=== PATIENT | male | born 2000 | race Caucasian/White ===

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

== ENCOUNTER 2022-03-26 19:28 | Emergency (ER) | payer SELFPAY ==
[~2022-03-26] VITALS: Ht 182.9 cm; Wt 89.4 kg
[2022-03-26 19:54] VITALS: BP 125/58
--- NOTE | 2022-03-26 20:00 | NUR ---
PT TO LOBBY VIA W/C
--- NOTE | 2022-03-26 20:15 | NUR ---
PT TAKEN TO RAD
--- NOTE | 2022-03-26 20:20 | NUR ---
PT BACK FROM RAD.
--- NOTE | 2022-03-26 20:53 | NUR ---
PT TO [facility]
--- NOTE | 2022-03-26 21:01 | NUR ---
ARMA[facility] SIN EXAMINING PT.
[2022-03-26] MEDS ORDERED: IBUPROFEN 800 MG TAB PO ONE (21:05)
[2022-03-26] MEDS ORDERED: IBUP-2213 PO (21:22)
[2022-03-26 21:43] VITALS: BP 125/58
== END 2022-03-26 21:43 | disposition home or self-care (01) ==
LOC: MED 19:28
DX: S93.402A Sprain of unspecified ligament of left ankle, initial encounter (principal); W18.30XA Fall on same level, unspecified, initial encounter; Y93.51 Activity, roller skating (inline) and skateboarding; Y92.89 Other specified places as the place of occurrence of the external cause; Y99.8 Other external cause status
CPT/HCPCS: 73610; 99283

== ENCOUNTER 2024-01-10 17:30 | Emergency (ER) | payer OTHER ==
[~2024-01-10] VITALS: Ht 185.4 cm; Wt 86.2 kg
[~2024-01-10 17:30] MED LIST: IBUP-2213 PO
[2024-01-10 17:55] VITALS: BP 115/64; PULSE 82; RESP 24; TEMP 98.5; O2SAT 100
[2024-01-10] MEDS ORDERED: IBUP-2213 PO (18:20)
[2024-01-10] MEDS ORDERED: ACET-8905 PO (18:20)
[2024-01-10] MEDS: KETOROLAC 60 MG/2 ML VIAL IM ONE (18:27)
[2024-01-10 18:39] VITALS: BP 123/54; PULSE 83; RESP 20; TEMP 36.94740; O2SAT 100
== END 2024-01-10 18:39 | disposition home or self-care (01) ==
LOC: MED 17:30
DX: M79.10 Myalgia, unspecified site (principal); F12.90 Cannabis use, unspecified, uncomplicated; Z79.899 Other long term (current) drug therapy; V49.88XA Car occupant (driver) (passenger) injured in other specified transport accidents, initial encounter; Y93.89 Activity, other specified; Y92.89 Other specified places as the place of occurrence of the external cause; Y99.8 Other external cause status
CPT/HCPCS: 96372; 99283; J1885

== ENCOUNTER 2024-02-06 18:47 | Emergency (ER) | payer OTHER ==
[~2024-02-06] VITALS: Ht 185.4 cm; Wt 84.0 kg
[~2024-02-06 18:47] MED LIST changes: +ACET-8905 PO
[2024-02-06 18:53] VITALS: BP 139/51; PULSE 82; RESP 18; TEMP 99.6; O2SAT 100
[2024-02-06] MEDS ORDERED: DOCO1CRE TP (19:39)
[2024-02-06] MEDS ORDERED: IBUP-2213 PO (19:39)
[2024-02-06] MEDS ORDERED: ACYC200C26 PO (19:39)
== END 2024-02-06 19:48 | disposition home or self-care (01) ==
LOC: MED 18:47
DX: B00.2 Herpesviral gingivostomatitis and pharyngotonsillitis (principal); Z79.1 Long term (current) use of non-steroidal anti-inflammatories (NSAID); Z79.899 Other long term (current) drug therapy
CPT/HCPCS: 99283